=== PATIENT | female | born 1970 | race Caucasian/White ===

== ENCOUNTER 2025-07-02 21:09 | Emergency (ER) | payer BC, SELFPAY ==
[2025-07-02 21:11] VITALS: BP 147/84
--- NOTE | 2025-07-02 21:34 | ED.GENMED ---
History of Present Illness
General
Chief Complaint: Breathing Problem
Time Seen by Provider: 07/02/25 21:34
History of Present Illness
History of Present Illness:
FOCUSED PAST MEDICAL HISTORY
- No significant past medical history
REVIEW OF OLD RECORDS
-No old records for review
Note:
CHIEF COMPLAINT(S)
Right-sided chest pain and shortness of breath following a fall.
HISTORY OF PRESENT ILLNESS
The patient is a 55-year-old female who presented with right-sided chest pain and shortness of breath following a fall that occurred three days prior, on Tuesday night. The patient reported tripping over her dog at the top of a staircase, resulting
in a fall down six to seven steps. Since the fall, she experienced ongoing pain on the right side of her chest and difficulty breathing, which has not improved over the past three days.
On Tuesday, she sought medical evaluation and underwent imaging at [facility], where X-rays were performed. According to the patients primary care provider, there were no fractures seen on the initial report, but a voicemail indicated the
presence of a pneumothorax, or air outside of the lung, and multiple rib fractures. She then also told us that another provider indicated that there were no rib fractures. The patient was advised to go to the emergency room by the primary care
team for further evaluation and management.
The patient denies abdominal pain but acknowledges some bruising around the left eye, potentially from her knee during the fall. She reported no significant headache or head pain and confirmed she is not on any blood-thinning medications. She
maintains blood pressure medication for hypertension but is otherwise in good health.
PHYSICAL EXAM
General: Alert, appears somewhat uncomfortable related to pain in the right thoracic region posteriorly
Skin: Warm, dry. Left periorbital ecchymosis with no bony tenderness
Head: Normocephalic, atraumatic, minimal hematoma to the posterior scalp
Neck: Supple, trachea midline. No midline C-spine tenderness
Eye, Ears, Nose, Mouth and Throat: Oral mucosa moist. Ecchymosis around left periorbital area.
Cardiovascular: Normal peripheral perfusion, No edema.
Respiratory: Respirations are non-labored, tender on palpation over the right rib cage posteriorly with decreased active range of motion due to pain. No definite asymmetry in breath sounds. However she does have decreased range of motion of the
thoracic spine due to pain. Inspiratory effort related to pain making exam somewhat unreliable
Gastrointestinal: Abdomen nondistended, no tenderness on examination.
Back: Normal range of motion, Normal alignment.
Musculoskeletal: Normal range of motion, normal strength, tenderness noted over the ribs on the right side.
Neurological: Alert and oriented to person, place, time, and situation, No focal neurological deficit observed.
Psychiatric: Cooperative, appropriate mood & affect.
PROBLEM LIST
Acute:
- Right-sided chest pain
- Pneumothorax
- Possible rib fractures
- Contusion around the left eye
Chronic:
- Hypertension
PLAN
- Confirm the presence and size of the pneumothorax with a definitive imaging study such as a CT scan.
- Evaluate the extent of rib fractures and any potential complications, including hemothorax or further traumatic damage.
- Consider transfer to a trauma center if multiple rib fractures or significant pneumothorax are confirmed for advanced management.
- Monitor vital signs and oxygen saturation closely.
- Administer analgesics for pain management.
- Continue blood pressure management as prescribed.
DIFFERENTIAL DIAGNOSIS
The Differential Diagnosis includes, in no particular order and is not limited to:
- Rib fracture
- Pneumothorax
- Hemothorax
- Pulmonary contusion
- Costochondritis
- Musculoskeletal chest pain
- Internal bleeding
- Hematoma formation
- Tension pneumothorax
- Subcutaneous emphysema
RADIOLOGY
- CT chest obtained which shows right sided rib fractures with hemopneumothorax in which the pneumothorax is at least moderate-sized
LABS
- White count 8.2, hemoglobin 11.8
UPDATE
-SUMMARY OF ENCOUNTER
The patient was seen in the emergency department for right-sided chest pain and shortness of breath following a fall. The evaluation revealed multiple rib fractures with a traumatic hemopneumothorax. Management options considered included placement
of a pigtail catheter versus a chest tube. Following a discussion with Dr. Somers from interventional radiology, it was decided that a pigtail catheter could be initially placed with the possibility of transitioning to a chest tube later. However,
due to the appearance of the hemopneumothorax, the decision was made to transfer the patient to a trauma center for further management. Given that the patient was hemodynamically stable, and her oxygen saturation was 95% on room air, [facility]
decided to handle the placement of the tube. I feel that the patient is hemodynamically stable and is in no significant distress at this time. Transfer should occur at about 11:15 PM tonight
DISPOSITION
Transfer to a trauma center.
MANAGEMENT OF THE PATIENTS CARE WAS DISCUSSED WITH
Dr. Somers, interventional radiology.
Dr. Lion at [facility] who accepts to his service
PLAN
Transfer the patient to a trauma center for further management of the hemopneumothorax and rib fractures. Supplemental oxygen was administered for comfort.
INDEPENDENT REVIEW OF LABS AND INTERPRETATION OF TESTS
- My independent review of radiology interpretation shows multiple rib fractures with a traumatic hemopneumothorax.
PATIENT EDUCATION AND COUNSELING
Discussed with the patient about the condition of hemopneumothorax and the need for transfer to a trauma center for further treatment. Explained the need for potential tube placement and the current plan for managing her condition.
FOLLOW-UP INSTRUCTIONS
Patient to follow up at the trauma center for further management of her condition.
MEDICAL DECISION MAKING
- Number and Complexity of Problems Addressed: Chronic conditions affecting care include hypertension. The differential diagnosis includes rib fracture, pneumothorax, hemothorax, pulmonary contusion, costochondritis, musculoskeletal chest pain,
internal bleeding, hematoma formation, tension pneumothorax, and subcutaneous emphysema.
- Data:
Category 1:
- My independent interpretation of radiology study shows multiple rib fractures with a traumatic hemopneumothorax.
Category 3:
- Discussion of management with Dr. Somers, interventional radiology.
-Risk:
Prescription medication was not prescribed. Given the complexity and risk of the patient�s presenting complaint, a decision for transfer to a trauma center was made.
DIAGNOSIS
- Multiple rib fractures, traumatic hemopneumothorax.
- Hemopneumothorax, traumatic (ICD-10: S27.2XXA)
- Rib fractures, multiple (ICD-10: S22.4XXA)
Phy Exam
Physical Exam
Physical Exam:
See HPI
Scores
Heart Failure Risk
Heart Failure Risk Score: Not Applicable
Course
Orders/Labs/Results
Orders:
Orders
07/02/25 21:45
CT Chest W/o Iv Contrast Urgent
Comment:
Reason For Exam: Trauma R pain; reports ?PTX ?rib fx CXR
07/02/25 22:03
Complete Blood Count/With Diff Urgent
Comprehensive Metabolic Panel Urgent
Abnormal Lab Results
07/02/25
22:03
RBC 3.44 L 10^6/uL
(4.20-5.40)
Hgb 11.8 L g/dL
(12.0-16.0)
Hct 35.1 L %
(37.0-47.0)
MCV 102.0 H fL
(81.0-99.0)
MCH 34.3 H pg
(27.0-31.0)
MPV 11.3 H fL
(7.4-10.4)
Lymphocytes % 20.1 L %
(20.5-51.1)
BUN 18 H mg/dl
(7-17)
Glucose 126 H mg/dl
(70-99)
AST 55 H U/L
(14-36)
ALT 81 H U/L
(0-35)
07/02/25 22:03
07/02/25 22:03
Vital Signs
Initial and Last Documented VS:
Initial Vital Signs
Temp Pulse Resp BP Pulse Ox
37.0 C 86 16 147/84 95
07/02/25 21:11 07/02/25 21:11 07/02/25 21:11 07/02/25 21:11 07/02/25 21:11
Last Documented Vital Signs
Temp Pulse Resp BP Pulse Ox
37.0 C 86 16 151/79 97
07/02/25 21:11 07/02/25 21:11 07/02/25 21:11 07/02/25 22:31 07/02/25 22:31
*Pulse Oximetry
SaO2: 95
Oxygen Mode of Delivery: Room air
Patient hypoxic: no
*Critical Care Note
Total Time (30-74mins, 75-104mins- exclusive of procedures): Not Applicable
ED Attending Note
-
Portions of this chart may have been created with voice recognition software.� Occasional wrong word or��sound alike� substitutions may have occurred due to the inherent limitations of voice recognition software.
Discharge Plan
Departure
Referrals:
UNKNOWN - PT DOES,NOT KNOW [Family Provider]
Interventions
Interventions:
*Risk Screen - Suicide Last Done: 07/02/25 21:13
*Neglect/Abuse Screening Last Done: 07/02/25 21:13
ED- Cardiac Assessment Last Done: 07/02/25 22:04
ED- Pulmonary Assessment Last Done: 07/02/25 22:04
Discharge Date and Time
Print Language: AUSTRALIAN
[2025-07-02 22:04] VITALS: BMI 25.0
[2025-07-02 22:18] LABS: Hematocrit 35.1 % (37.0-47.0); Hemoglobin 11.8 g/dL (12.0-16.0); Mean Corp Hgb Conc. 33.6 g/dL (33.0-37.0); Mean Corpuscular Volume 102.0 fL (81.0-99.0); Nucleated Red Blood Cells % 0 %; Platelet Count 180 10^3/uL (130-400); Red Cell Dist. Width 12.7 % (11.5-14.5)
[2025-07-02 22:31] VITALS: BP 151/79
[2025-07-02 22:38] LABS: ALT (SGPT) 81 U/L (0-35); AST (SGOT) 55 U/L (14-36); Albumin 4.3 g/dl (3.5-5.0); Alkaline Phosphatase 52 U/L (38-126); Blood Urea Nitrogen 18 mg/dl (7-17); Calcium 9.6 mg/dl (8.4-10.2); Carbon Dioxide 30 mmol/L (22-30); Chloride 105 mmol/L (98-107); Estimated Creatinine Clearance 64 ml/min; Glucose 126 mg/dl (70-99); Potassium 4.4 mmol/L (3.5-5.1); Sodium 140 mmol/L (135-145); Total Protein 6.9 g/dl (6.3-8.2); eGFR > 60.00
== END 2025-07-02 23:01 | disposition short-term general hospital (02) ==
LOC: EMR 21:09
PROVIDERS: EMERGENCY PHYSICIAN Emergency Medicine
DX: S27.2XXA Traumatic hemopneumothorax, initial encounter (principal); S22.41XA Multiple fractures of ribs, right side, initial encounter for closed fracture; W10.9XXA Fall (on) (from) unspecified stairs and steps, initial encounter; W01.0XXA Fall on same level from slipping, tripping and stumbling without subsequent striking against object, initial encounter; I10 Essential (primary) hypertension
CPT/HCPCS: 99285; 71250; 80053; 85025